=== PATIENT | female | born 1975 | race Two or more races ===

== ENCOUNTER 2025-01-01 11:11 | Inpatient (IN) | payer OTHER ==
[~2025-01-01] VITALS: Ht 162.6 cm; Wt 104.3 kg
[2025-01-01] MEDS ORDERED: ZESTRIL10 M1 PO (12:02)
[2025-01-01] MEDS ORDERED: VAZALORE81 MG PO (12:03)
[2025-01-01] MEDS ORDERED: PRILOSEC OTC20 MG PO (12:03)
[2025-01-01] MEDS ORDERED: METFORMIN HCL500 M3 PO (12:03)
[2025-01-01] MEDS ORDERED: LYRICA100 MG PO (12:03)
--- NOTE | 2025-01-01 12:05 | NUR ---
SE RECIBE PTE ALERTA Y ORIENTADA X3 QUIEN REFIERE CELULITIS EN GLUTEO DERECHO. REFIERE QUE PRESENTA DOLOR Y PICOR. SE MIDEN S/V Y SE UBICA EN DANYELLE DE ESPERA.
--- NOTE | 2025-01-01 13:51 | NUR ---
PACIENTE ALERTA Y ORIENTADA X3. SE EDUCA SOBRE PROCESO DE MARIANA DE MUESTRAS Y CANALIZACION, REFIERE ENTENDER. SE EJECUTAN ORDENES BAJO MEDIDAS ASEPTICAS. PENDIENTE A CT.
[2025-01-01 15:46] LABS: BASO % 0.4 % (0.1-1.2); EOS # 0.11 (0.04-0.54); EOS % 0.9 % (0.7-7.0); LYMPH # 2.09 (1.18-3.74); LYMPH % 16.4 % (19.3-53.1); MEAN PLATELET VOLUME 9.80 fl (9.4-12.4); MONO # 0.77 (0.24-0.82); MONO % 6.0 % (4.7-12.5); NEUT # 9.73 (1.56-6.13); NEUT % 76.1 % (34.0-71.1); RED CELL DISTRIBUTION WIDTH 12.7 % (11.6-14.4)
[2025-01-01 15:48] LABS: ERYTHROCYTE SEDIMENTATION RATE 30 mm/hr (0-20)
[2025-01-01 16:03] LABS: ALT/SGPT 56.0 U/L (12-78); AST/SGOT 22.0 U/L (15-37); BILIRUBIN TOTAL 0.29 mg/dL (0.3-1.2); BUN CREA RATIO 18.0 (7.0-25.0); CREATININE SERUM 0.68 mg/dL (0.55-1.02); GFR 91.59; GLOBULINA 3.8 G/DL (2.4-3.5); GLUCOSE FASTING 137.0 mg/dL (65-100); OSMOLALITY SERUM 285.0 MOSM/KG (275-295)
[2025-01-01] MEDS ORDERED: KETOROLAC TROMETHAMINE 30 MG VIAL IV ONE (17:30)
[2025-01-01] MEDS ORDERED: KETOROLAC TROMETHAMINE 30 MG VIAL ONE (17:40)
[2025-01-01] MEDS ORDERED: MORPHINE SULFATE 2 MG/ML SYRINGE IV PRN (22:15)
[2025-01-01] MEDS ORDERED: 0.9 % SODIUM CHLORIDE 1,000 ML IV SCH (23:45)
[2025-01-01] MEDS ORDERED: KETOROLAC TROMETHAMINE 30 MG VIAL IV PRN (23:45)
[2025-01-01] MEDS ORDERED: ONDANSETRON HCL 4 MG in 0.9 % SODIUM CHLORIDE 50 ML IV PRN (23:45)
[2025-01-01] MEDS ORDERED: ACETAMINOPHEN 325 MG TABLET PO PRN (23:45)
[2025-01-01] MEDS ORDERED: DEXTROSE 50 % IN WATER 0.5 G/ML DISP.SYRIN IV PRN (23:45)
[2025-01-01] MEDS ORDERED: INSULIN LISPRO 1,000 UNIT/10 ML UNITS SUBCUTANEO PRN (23:45)
[2025-01-01] MEDS ORDERED: PIPERACILLIN/TAZOBACTAM SODIUM 3.375 GM VIAL IV ONE (23:58)
[2025-01-02] MEDS ORDERED: PIPERACILLIN/TAZOBACTAM SODIUM 3.375 GM in 0.9 % SODIUM CHLORIDE 100 ML IV SCH
[2025-01-02] MEDS ORDERED: KETOROLAC TROMETHAMINE 30 MG VIAL ONE ×2 (05:16→19:13)
[2025-01-02] MEDS ORDERED: PIPERACILLIN/TAZOBACTAM SODIUM 3.375 GM VIAL IV ONE (05:17)
[2025-01-02 06:03] LABS: INR 0.96
[2025-01-02] MEDS ORDERED: ACETAMINOPHEN 500 MG GEL..CAP PO PRN (08:45)
[2025-01-02] MEDS ORDERED: VANCOMYCIN HCL 1,000 MG VIAL IV SCH (09:00)
[2025-01-02] MEDS ORDERED: FAMOTIDINE/PF 20 MG/2 ML VIAL IV SCH (09:00)
[2025-01-02] MEDS ORDERED: LISINOPRIL 10 MG TABLET PO SCH (09:00)
[2025-01-02 09:02] VITALS: BP 117/64; O2SAT 98
[2025-01-02] MEDS ORDERED: FAMOTIDINE/PF 20 MG/2 ML VIAL ONE (09:04)
[2025-01-02 22:37] VITALS: BP 160/80
[2025-01-03 02:31] VITALS: BP 123/86
[2025-01-03 06:14] LABS: BASO % 0.4 % (0.1-1.2); EOS # 0.10 (0.04-0.54); EOS % 1.2 % (0.7-7.0); LYMPH # 2.58 (1.18-3.74); LYMPH % 31.5 % (19.3-53.1); MEAN PLATELET VOLUME 9.90 fl (9.4-12.4); MONO # 0.52 (0.24-0.82); MONO % 6.3 % (4.7-12.5); NEUT # 4.93 (1.56-6.13); NEUT % 60.2 % (34.0-71.1); RED CELL DISTRIBUTION WIDTH 13.1 % (11.6-14.4)
[2025-01-03 06:50] LABS: ALT/SGPT 55.0 U/L (12-78); AST/SGOT 22.0 U/L (15-37); BILIRUBIN TOTAL 0.28 mg/dL (0.3-1.2); BUN CREA RATIO 23.0 (7.0-25.0); CREATININE SERUM 0.74 mg/dL (0.55-1.02); GFR 83.07; GLOBULINA 3.6 G/DL (2.4-3.5); GLUCOSE FASTING 137.0 mg/dL (65-100); OSMOLALITY SERUM 292.0 MOSM/KG (275-295)
[2025-01-03] MEDS ORDERED: ENOXAPARIN SODIUM 40 MG/0.4 ML SYRINGE SUBCUTANEO SCH (09:00)
[2025-01-03 20:36] VITALS: BP 146/92; O2SAT 98
[2025-01-04 02:12] VITALS: BP 139/78; O2SAT 100
[2025-01-04] MEDS ORDERED: BUTALB/ACETAMINOPHEN/CAFFEINE 1 TAB TABLET PO PRN (07:45)
[2025-01-04] MEDS ORDERED: VANCOMYCIN HCL 1,000 MG VIAL ONE ×2 (08:17→14:20)
[2025-01-04 16:42] VITALS: BP 164/91; O2SAT 99
[2025-01-04] MEDS ORDERED: VANCOMYCIN HCL 5 MG/ML REDILUIDO IV SCH (21:00)
[2025-01-05 00:38] VITALS: BP 138/75; O2SAT 99
[2025-01-05 08:00] VITALS: BP 107/70; O2SAT 99
[2025-01-05 16:50] VITALS: BP 147/78; O2SAT 99
[2025-01-06 00:32] VITALS: BP 141/85; O2SAT 98
[2025-01-06 06:47] LABS: BASO % 0.6 % (0.1-1.2); EOS # 0.08 (0.04-0.54); EOS % 1.0 % (0.7-7.0); LYMPH # 2.82 (1.18-3.74); LYMPH % 33.6 % (19.3-53.1); MEAN PLATELET VOLUME 10.10 fl (9.4-12.4); MONO # 0.48 (0.24-0.82); MONO % 5.7 % (4.7-12.5); NEUT # 4.91 (1.56-6.13); NEUT % 58.4 % (34.0-71.1); RED CELL DISTRIBUTION WIDTH 13.0 % (11.6-14.4)
[2025-01-06 07:21] LABS: ALT/SGPT 94.0 U/L (12-78); AST/SGOT 46.0 U/L (15-37); BILIRUBIN TOTAL 0.22 mg/dL (0.3-1.2); BUN CREA RATIO 17.0 (7.0-25.0); CREATININE SERUM 0.76 mg/dL (0.55-1.02); GFR 80.55; GLOBULINA 3.2 G/DL (2.4-3.5); GLUCOSE FASTING 125.0 mg/dL (65-100); OSMOLALITY SERUM 288.0 MOSM/KG (275-295)
[2025-01-06 10:49] VITALS: BP 150/100; O2SAT 99
== END 2025-01-06 17:02 | disposition home or self-care (01) | DRG 623 ==
LOC: ER 11:11 → SEC-K 23:36 → MEDJ 01-02 18:28 → SURH 01-03 16:07
PROVIDERS: General Practice; Internal Medicine Infectious Disease; Student in an Organized Health Care Education/Training Program; ADMIT Internal Medicine; ATTEND Internal Medicine
PROC: BW2GZZZ Computerized Tomography (CT Scan) of Pelvic Region (ICD-10-PCS; 2025-01-01)
PROC: 0JB90ZZ Excision of Buttock Subcutaneous Tissue and Fascia, Open Approach (ICD-10-PCS; principal; 2025-01-03)
PROC: 0J990ZZ Drainage of Buttock Subcutaneous Tissue and Fascia, Open Approach (ICD-10-PCS; 2025-01-03)
PROC: 8E0ZXY6 Isolation (ICD-10-PCS; 2025-01-03)
PROC: 0JB90ZZ Excision of Buttock Subcutaneous Tissue and Fascia, Open Approach (ICD-10-PCS; 2025-01-05)
DX: E11.622 Type 2 diabetes mellitus with other skin ulcer (principal); L02.31 Cutaneous abscess of buttock; L03.317 Cellulitis of buttock; L98.419 Non-pressure chronic ulcer of buttock with unspecified severity; B95.62 Methicillin resistant Staphylococcus aureus infection as the cause of diseases classified elsewhere; Z79.84 Long term (current) use of oral hypoglycemic drugs

== ENCOUNTER 2025-02-08 15:26 | Outpatient (CLI) | payer OTHER ==
[~2025-02-08 15:26] MED LIST: LYRICA100 MG PO; METFORMIN HCL500 M3 PO; PRILOSEC OTC20 MG PO; VAZALORE81 MG PO; ZESTRIL10 M1 PO
== END 2025-02-08 15:41 | disposition home or self-care (01) ==
LOC: LAB 15:26
PROVIDERS: ATTEND Specialist
DX: L02.91 Cutaneous abscess, unspecified (principal)